=== PATIENT | male | born 1985 | race Caucasian/White ===

== ENCOUNTER 2022-06-06 22:54 | Emergency (ER) | payer BC, OTHER ==
[2022-06-07] MEDS ORDERED: Ondansetron 4 MG/2 ML SDV IVPUSH ONE (00:06)
[2022-06-07] MEDS ORDERED: Sodium Chloride 0.9% 1,000 ML IV ONE (01:39)
[2022-06-07] MEDS ORDERED: HYDROmorphone 0.5 MG/0.5 ML Syringe IVPUSH STA (01:39)
[2022-06-07] MEDS ORDERED: Dicyclomine 10 MG Cap PO STA (01:39)
[2022-06-07 03:15] LABS: CORONAVIRUS COVID-19 NAA NEGATIVE (NEGATIVE)
== END 2022-06-07 05:13 | disposition home or self-care (01) ==
LOC: JD.ED 22:54
DX: R10.84 Generalized abdominal pain (principal); E66.9 Obesity, unspecified; Z68.30 Body mass index [BMI] 30.0-30.9, adult; Z79.899 Other long term (current) drug therapy; Z86.16 Personal history of COVID-19; Z20.822 Contact with and (suspected) exposure to COVID-19
CPT/HCPCS: 0240U; 36415; 80053; 81001; 83690; 85007; 85027; 96361; 96374; 96375; 99284; A9270; J1170; J2405; J7030